=== PATIENT | female | born 1980 | race Caucasian/White ===

== ENCOUNTER 2016-11-20 21:30 | Emergency (ER) | payer MEDICAID, OTHER ==
[~2016-11-20] VITALS: Ht 152.4 cm; Wt 65.0 kg
[2016-11-20 21:39] VITALS: Ht 152.4 cm; Wt 65.0 kg
--- NOTE | 2016-11-20 22:22 | ERD ---
ER Documentation Chief Complaint Date/Time DATE: 11/20/16 TIME: 22:20 Chief Complaint vaginal bleeding x 5 days, denies HPI 36-year-old female presents to emergency department for complaints of vaginal bleeding for 5 days, patient has been having on and of vaginal bleeding for the last 3 days. Patient has been soaking a pad per day. Patient was in a Depo- Provera injection for the last year for contraception. Patient states that she has not had any menstruation for the last year prior to August 30. Patient denies any flank pain. Patient denies being . Patient is complaining of pelvic pain and cramping pain 4/10 scale accompanying the vaginal bleeding. ROS All systems reviewed and are negative except as per history of present illness. Medications Home Meds Reported Medications [none] Unknown Strength No Conflict Check 11/20/16 Allergies Allergies: Coded Allergies: Sulfa (Sulfonamide Antibiotics) (Verified Allergy, Unknown, 11/20/16) PMhx/Soc Medical and Surgical Hx: pt denies Medical Hx, pt denies Surgical Hx FmHx Family History: No coronary disease, No diabetes, No other Physical Exam Vitals Vital Signs Date Time Temp Pulse Resp B/P Pulse Ox O2 Delivery O2 Flow Rate FiO2 11/20/16 21:39 97.8 87 20 124/59 100 Physical Exam GENERAL: The patient is well developed and appropriate for usual state of health, in no apparent distress. CHEST: Clear to auscultation bilaterally. There are no rales, wheezes or rhonchi. HEART: Regular rate and rhythm. No murmurs, clicks, rubs or gallops. No S3 or S4. ABDOMEN: Soft, nontender and nondistended. Good bowel sounds. No rebound or guarding. No gross peritonitis. No gross organomegaly or masses. No Perez sign or McBurney point tenderness. BACK: No midline or flank tenderness. EXTREMITIES: Equal pulses bilaterally. There is no peripheral clubbing, cyanosis or edema. No focal swelling or erythema. Full range of motion. Grossly neurovascularly intact. NEURO: Alert and oriented. Cranial nerves 2-12 intact. Motor strength in all 4 extremities with 5/5 strength. Sensation grossly intact. Normal speech and gait. SKIN: There is no apparent rash or petechia. The skin is warm and dry. HEMATOLOGIC AND LYMPHATIC: There is no evidence of excessive bruising or lymphedema. No gross cervical, axillary, or inguinal lymphadenopathy. Result Diagram: 11/20/16 2239 Results 24 hrs Laboratory Tests Test 11/20/16 22:39 White Blood Count 8.110^3/ul Red Blood Count 3.9010^6/ul Hemoglobin 12.2g/dl Hematocrit 35.7% Mean Corpuscular Volume 91.5fl Mean Corpuscular Hemoglobin 31.3pg Mean Corpuscular Hemoglobin Concent 34.2g/dl Red Cell Distribution Width 12.2% Platelet Count 60016^3/UL Mean Platelet Volume 9.3fl Neutrophils % 53.3% Lymphocytes % 37.1% Monocytes % 8.1% Eosinophils % 1.0% Basophils % 0.4% Nucleated Red Blood Cells % 0.0/100WBC Neutrophils # 4.310^3/ul Lymphocytes # 3.010^3/ul Monocytes # 0.710^3/ul Eosinophils # 0.110^3/ul Basophils # 0.010^3/ul Nucleated Red Blood Cells # 0.010^3/ul Urine Color LT. YELLOW Urine Clarity CLEAR Urine pH 7.0 Urine Specific Woodson <=1.005 Urine Ketones NEGATIVE Urine Nitrite NEGATIVE Urine Bilirubin NEGATIVE Urine Urobilinogen 0.2 E.U./dL Urine Leukocyte Esterase NEGATIVE Urine Microscopic RBC >50/HPF Urine Microscopic WBC NONE SEEN/HPF Urine Squamous Epithelial Cells FEW Urine Bacteria FEW Urine Hemoglobin 3+ Urine Glucose NEGATIVE% Urine Total Protein NEGATIVE Beta HCG, Quantitative < 2.4mIU/ml PROCEDURE: US Non-OB Pelvis. CLINICAL INDICATION: Vaginal bleeding. TECHNIQUE: Multiple sonographic images of the pelvis were obtained utilizing a transabdominal technique. The images were reviewed on a PACS workstation. COMPARISON: None. FINDINGS: The uterus is visualized and measures 9.8 x 4.1 x 5.5 cm. The endometrial echo complex is normal and measures 8 mm. There is trace fluid in the endometrial canal. The right ovary measures 4.9 x 2.5 x 4.0 cm. The left ovary measures 4.6 x 3.8 x 4.2 cm. There is a 3.1 cm simple left ovarian cyst. Blood flow is demonstrated to both ovaries. No adnexal masses are noted. There is no evidence of free fluid. IMPRESSION: 1. Normal appearance of the uterus with no endometrial thickening. There is trace fluid in the endometrial canal, probably blood. 2. 3.1 cm simple left ovarian cyst. 3. Unremarkable appearance of the right ovary. RPTAT: HTAR .Saqib Calvo MD, MD Date Time Electronically viewed and signed by .Saqib Calvo MD, on 11/20/2016 23:13 .R/ CC: SWETHA MATA NP Procedures/MDM Medical Decision Making: Patients vaginal bleeding is most likely stable dysfunctional uterine bleeding. Patient does not show any evidence of hypovolemic shock. Patients hemoglobin and hematocrit is stable. There is low suspicion for ectopic . MARY results show an incidental finding of an ovarian cyst BetaHCG Quantitative is low negative for . There is no signs of symptoms of dehydration. There is low suspicion for sepsis. Patient appears well and is hemodynamically stable. Disposition: Home. Condition: Stable Rx: Ferrous sulfate, Colace, ibuprofen, tramadol Instructions: Patient is advised to do bed rest, avoid heavy lifting, and avoid having sex until cleared by OB doctor. Patient is advised to follow up with OB doctor. Patient is advised that is symptoms are worst, severe bleeding, dizziness, severe abdominal pain, fever, worst signs and symptoms to return to the emergency department immediately. Departure Diagnosis: Primary Impression: Vaginal bleeding Additional Impression: Ovarian cyst Laterality: left Qualified Code: N83.202 - Cyst of left ovary Condition: Stable Patient Instructions: Dysfunctional Uterine Bleeding, Ovarian Cyst Additional Instructions: Patient is advised to do bed rest, avoid heavy lifting, and avoid having sex until cleared by OB doctor. Patient is advised to follow up with OB doctor. Patient is advised that is symptoms are worst, severe bleeding, dizziness, severe abdominal pain, fever, worst signs and symptoms to return to the emergency department immediately. SWETHA MATA NP Nov 20, 2016 22:21
[2016-11-20 22:49] LABS: ADD SCAN DIFF NO
[2016-11-20 22:51] LABS: BASOPHILS % 0.4 % (0.0-2.0); EOSINOPHILS # 0.1 10^3/ul (0.0-0.5); HEMATOCRIT 35.7 % (37.0-47.0); HEMOGLOBIN 12.2 g/dl (12.0-16.0); LYMPHOCYTES % 37.1 % (15.0-51.0); MEAN CORPUSCULAR HEMOGLOBIN 31.3 pg (29.0-33.0); MEAN CORPUSCULAR HGB CONC 34.2 g/dl (32.0-37.0); MEAN CORPUSCULAR VOLUME 91.5 fl (82.0-101.0); MEAN PLATELET VOLUME 9.3 fl (7.4-10.4); MONOCYTE # 0.7 10^3/ul (0.3-0.9); MONOCYTES % 8.1 % (0.0-11.0); NEUTROPHIL # 4.3 10^3/ul (1.6-7.5); NEUTROPHILS % 53.3 % (39.0-77.0); PLATELET COUNT 256 10^3/UL (140-415); RED CELL DISTRIBUTION WIDTH 12.2 % (11.5-14.5); WHITE BLOOD COUNT 8.1 10^3/ul (4.8-10.8)
[2016-11-20 22:53] LABS: ADD UMIC YES; URINE BILIRUBIN (Dip) NEGATIVE (NEGATIVE); URINE BLOOD (Dip) 3+ (NEGATIVE); URINE COLOR LT. YELLOW (YELLOW); URINE GLUCOSE (Dip) NEGATIVE (NEGATIVE); URINE KETONES (Dip) NEGATIVE (NEGATIVE); URINE LEUKOCYTE ESTERASE (Dip) NEGATIVE (NEGATIVE); URINE NITRITE (Dip) NEGATIVE (NEGATIVE); URINE TOTAL PROTEIN (Dip) NEGATIVE (NEGATIVE); URINE UROBILINOGEN (Dip) 0.2 E.U./dL (0.1-1.0)
[2016-11-20 23:03] LABS: BACTERIA,URINE FEW; SQUAMOUS EPITHELIAL CELL,UR FEW; URINE RBCS >50 /HPF (0)
--- NOTE | 2016-11-20 23:14 | RADRPT ---
PROCEDURE: US Non-OB Pelvis. CLINICAL INDICATION: Vaginal bleeding. TECHNIQUE: Multiple sonographic images of the pelvis were obtained utilizing a transabdominal tech nique. The images were reviewed on a PACS workstation. COMPARISON: None. FINDINGS: The uterus is visualized and measures 9.8 x 4.1 x 5.5 cm. The endometrial echo complex is normal and measures 8 mm. There is trace fluid in the endometrial canal. The right ovary measures 4.9 x 2.5 x 4.0 cm. The left ovary measures 4.6 x 3.8 x 4.2 cm. There is a 3.1 cm simple left ovarian cyst. Blood flow is demonstrated to both ovaries. No adnexal masses are noted. There is no evidence of free fluid. IMPRESSION: 1. Normal appearance of the uterus with no endometrial thickening. There is trace fluid in the end ometrial canal, probably blood. 2. 3.1 cm simple left ovarian cyst. 3. Unremarkable appearance of the right ovary. RPTAT: HTAR .Saqib Calvo MD, MD Date Time Electronically viewed and signed by .Saqib Calvo MD, on 11/20/2016 23:13 .R/
[2016-11-21] MEDS ORDERED: IBUP-1542 PO (00:58)
[2016-11-21] MEDS ORDERED: DOCU-144 PO (00:58)
[2016-11-21] MEDS ORDERED: FER325 PO (00:58)
[2016-11-21] MEDS ORDERED: TRAM50TA2 PO (00:58)
[2016-11-21 01:43] VITALS: BP 140/70; PULSE 77; RESP 18; TEMP 98
== END 2016-11-21 02:01 | disposition home or self-care (01) ==
LOC: FTE 21:30
DX: N93.9 Abnormal uterine and vaginal bleeding, unspecified (principal); N83.202 Unspecified ovarian cyst, left side; R10.2 Pelvic and perineal pain
CPT/HCPCS: 36415; 76856; 81001; 84702; 85025; Z7502